=== PATIENT | male | born 1995 | race Caucasian/White ===

== ENCOUNTER 2024-04-11 23:16 | Emergency (ER) | payer SELFPAY ==
[~2024-04-11] VITALS: Ht 175.3 cm; Wt 64.0 kg
[2024-04-11 23:30] VITALS: BP 120/64; RESP 16; TEMP 98.8; O2SAT 99
[2024-04-11 23:31] VITALS: PULSE 86
[2024-04-12] MEDS: KETOROLAC 15MG/ML VIAL IM ONE (00:15)
== END 2024-04-12 01:20 | disposition left against medical advice (07) ==
LOC: ER 23:16
DX: S40.011A Contusion of right shoulder, initial encounter (principal); R07.89 Other chest pain; V89.2XXA Person injured in unspecified motor-vehicle accident, traffic, initial encounter; Y93.89 Activity, other specified; Y92.89 Other specified places as the place of occurrence of the external cause; Y99.8 Other external cause status
CPT/HCPCS: 93005; 99283; Z7610